=== PATIENT | male | born 1995 | race Caucasian/White ===

== ENCOUNTER 2016-05-07 12:41 | Emergency (ER) | payer OTHER ==
[2016-05-07] MEDS ORDERED: DEXAMETHASONE 10 MG/ML VIAL PO STA (13:54)
[2016-05-07] MEDS ORDERED: DEXAMETHASONE 10 MG/ML VIAL ONE (14:07)
[2016-05-07] MEDS ORDERED: CHERRY SYRUP 10 ML UDC PO ONE (14:07)
== END 2016-05-07 14:21 | disposition home or self-care (01) ==
DX: M54.5 Low back pain (principal); G89.29 Other chronic pain
CPT/HCPCS: 99283; A9270

== ENCOUNTER 2017-02-15 02:22 | Emergency (ER) | payer OTHER ==
--- NOTE | 2017-02-15 03:23 | ED Physician Documentation ---
PD HPI BACK PAIN - Stated complaint Stated Complaint: LOW BACK PAIN - Chief complaint Chief Complaint: Back Pain - History obtained from History obtained from: Patient - History of Present Illness Timing - onset: How many days ago (5) Timing - duration: Days (5) Timing - details: Abrupt onset, Constant, Waxing and waning Pain level now: 8 Location: Lower, Right, Left Quality: Pain, Spasm, Similar to prior episodes Associated symptoms: No: Weakness, Numbness (episodes of paresthesias of both feet, but not numbness (complete loss of sensation)) Improves with: Rest Worsened by: Movement Recently seen: Emergency Dept ( ED 2 weeks ago for same symptoms) - Additional information Additional information: c/o exacerbation of chronic LBP, 5 days ago without specific inciting event, gradually worsening and tonight became intolerable. Review of Systems : denies: Unable to Void, Incontinent Musculoskeletal: reports: Back pain Neurologic: denies: Focal weakness, Numbness PD PAST MEDICAL HISTORY - Past Medical History Past Medical History: Yes Cardiovascular: None Respiratory: None Neuro: None Endocrine/Autoimmune: None GI: None Musculoskeletal: Chronic back pain - Past Surgical History Past Surgical History: No - Present Medications Home Medications: Ambulatory Orders Medication Instructions Recorded Confirmed Cyclobenzaprine [Flexeril] 10 mg PO TID PRN #20 tablet 02/15/17 Hydrocodone/Acetaminophen 1 - 2 each PO Q6HR PRN #14 tablet 02/15/17 [Hydrocodon-Acetaminophen 5-325] predniSONE [Prednisone] 40 mg PO DAILY 3 Days #6 tablet 02/15/17 - Allergies Allergies/Adverse Reactions: Allergies Allergy/AdvReac Type Severity Reaction Status Date / Time No Known Drug Allergies Allergy Verified 02/15/17 02:29 - Social History Does the pt smoke?: No Smoking Status: Never smoker Does the pt drink ETOH?: Yes Does the pt have substance abuse?: No - Immunizations Immunizations are current?: Yes - POLST Patient has POLST: No PD ED PE NORMAL - Vitals Vital signs reviewed: Yes - General General: Alert and oriented X 3, Well developed/nourished, Other (appears to be uncomfortable due to pain) - Back Back: No CVA TTP, No spinal TTP - Derm Derm: Normal color, Warm and dry, No rash - Neuro Neuro: Alert and oriented X 3, No motor deficit (5/5 dorsi/plantarflexion bilaterally), No sensory deficit (LTS intact BLE), Other (2+/4 bilateral patellar DTR) Results - Vitals Vitals: Vital Signs - 24 hr 02/15/17 02/15/17 02:25 04:07 Temperature 36.5 C 36.8 C Heart Rate 83 88 Respiratory 16 18 Rate Blood Pressure 152/101 H 138/87 H O2 Saturation 99 97 Oxygen O2 Source Room air PD MEDICAL DECISION MAKING - ED course Complexity details: reviewed old records, considered differential, d/w patient Departure - Departure Disposition: 01 Home, Self Care Clinical Impression: Acute exacerbation of chronic low back pain Condition: Good Instructions: ED Back Care Tips, ED Sciatica Follow-Up: RAKESH Wallace [Provider Group] JAKE NAIR [Primary Care Provider] - Prescriptions: Hydrocodone/Acetaminophen [Hydrocodon-Acetaminophen 5-325] 1 - 2 each PO Q6HR PRN #14 tablet PRN Reason: Pain Cyclobenzaprine [Flexeril] 10 mg PO TID PRN #20 tablet PRN Reason: Spasms predniSONE [Prednisone] 40 mg PO DAILY 3 Days #6 tablet Discharge Date/Time: 02/15/17 04:07
[2017-02-15] MEDS ORDERED: predniSONE 20 MG TABLET PO STA (03:37)
[2017-02-15] MEDS ORDERED: predniSONE 20 MG TABLET ONE (03:48)
[2017-02-15] MEDS ORDERED: HYDROcod/ACET 5/325 Prepack 6 PO STA (03:52)
[2017-02-15] MEDS ORDERED: CYCLOBENZAPRINE 10 MG Prepack 2 PO STA (03:52)
[2017-02-15 04:10] VITALS: BP 138/87
== END 2017-02-15 04:07 | disposition home or self-care (01) ==
LOC: ED 02:22
DX: M54.5 Low back pain (principal); G89.29 Other chronic pain
CPT/HCPCS: 99283; J7512

== ENCOUNTER 2017-03-13 15:05 | Emergency (ER) | payer OTHER ==
[2017-03-13] MEDS ORDERED: DEXAMETHASONE 10 MG/ML VIAL IVP STA (16:27)
[2017-03-13] MEDS ORDERED: SODIUM CHLORIDE 0.9% 1,000 ML IV ONE (16:27)
[2017-03-13] MEDS ORDERED: KETOROLAC 60 MG/2 ML VIAL IVP STA (16:27)
--- NOTE | 2017-03-13 16:33 | ED Physician Documentation ---
PD HPI BACK PAIN - Stated complaint Stated Complaint: BACK PX - Chief complaint Chief Complaint: Back Pain - History obtained from History obtained from: Patient - History of Present Illness Timing - onset: Today Timing - duration: Days Timing - details: Abrupt onset, Still present Location: Mid Quality: Pain, Spasm, Sharp. No: Similar to prior episodes Associated symptoms: No: Fever, Weakness, Numbness, Incontinent of urine, Unable to urinate, Hematuria, Incontinent of stool Improves with: Rest, Position Worsened by: Movement Contributing factors: Other (no specific injury) Similar symptoms before: Diagnosis (chronic low back pain) Recently seen: Emergency Dept - Additional information Additional information: 22-year-old male with a history of chronic low back pain and spinal stenosis has developed a pain in his mid back beginning yesterday evening. He was in bed when this started and at first it was just a spasm in the right mid back under the scapula and was not particularly painful. As the night went on the pain started and the spasm has not let up. This is different than his usual low back pain and that pain is not any more painful than usual. The pain in the mid back is severe and he is grunting to give the history. Review of Systems Constitutional: denies: Fever, Chills, Myalgias Eyes: denies: Decreased vision Ears: denies: Ear pain Nose: denies: Congestion Throat: denies: Sore throat Cardiac: denies: Chest pain / pressure, Palpitations Respiratory: denies: Dyspnea, Cough GI: denies: Abdominal Pain, Nausea, Vomiting : denies: Dysuria, Frequency Skin: denies: Rash Musculoskeletal: reports: Back pain. denies: Neck pain, Extremity pain Neurologic: denies: Generalized weakness, Focal weakness, Numbness PD PAST MEDICAL HISTORY - Past Medical History Past Medical History: Yes Cardiovascular: None Respiratory: None Neuro: None Endocrine/Autoimmune: None GI: None Musculoskeletal: Chronic back pain Other Past Medical History: steroid shot to spinal for pain - Past Surgical History Past Surgical History: No - Present Medications Home Medications: Ambulatory Orders Medication Instructions Recorded Confirmed Cyclobenzaprine [Flexeril] 10 mg PO TID PRN #20 tablet 03/13/17 HYDROcod/ACETAM 5/325 [[place] 5/325] 1 - 2 ea PO Q6H PRN #15 tablet 03/13/17 - Allergies Allergies/Adverse Reactions: Allergies Allergy/AdvReac Type Severity Reaction Status Date / Time No Known Drug Allergies Allergy Verified 03/13/17 15:13 - Social History Does the pt smoke?: No Smoking Status: Never smoker Does the pt drink ETOH?: Yes Does the pt have substance abuse?: No - Immunizations Immunizations are current?: Yes - POLST Patient has POLST: No PD ED PE NORMAL - Vitals Vital signs reviewed: Yes (hypertensive) - General General: Alert and oriented X 3, Well developed/nourished, Other (The patient is gasping in pain and appears to have acute pain with small movements. He is grunting) - HEENT HEENT: Atraumatic, PERRL, EOMI - Neck Neck: Supple, no meningeal sign, No bony TTP - Cardiac Cardiac: RRR, No murmur - Respiratory Respiratory: No respiratory distress, Clear bilaterally, Other (There is a specific area of tenderness and spasm to the right posterior chest wall inferior to the scapula and lateral to the spine. There is paraspinous muscle spasm and this is dense spasm. ) - Abdomen Abdomen: Soft, Non tender - Back Back: No CVA TTP - Derm Derm: Normal color, No rash - Extremities Extremities: No deformity, No edema - Neuro Neuro: No motor deficit, No sensory deficit Eye Opening: Spontaneous Motor: Obeys Commands Verbal: Oriented GCS Score: 15 - Psych Psych: Normal mood, Normal affect Results - Vitals Vitals: Vital Signs - 24 hr 03/13/17 03/13/17 15:09 16:45 Temperature 36.2 C L 36.7 C Heart Rate 73 Respiratory 18 20 Rate Blood Pressure 138/93 H 127/75 O2 Saturation 100 98 Oxygen O2 Source Room air - Labs Labs: Laboratory Tests 03/13/17 03/13/17 03/13/17 16:44 16:44 16:44 WBC 8.6 RBC 5.69 Hgb 16.5 Hct 48.1 MCV 84.4 MCH 29.0 MCHC 34.4 RDW 13.5 Plt Count 220 MPV 8.6 Neut # 5.8 Lymph # 1.9 Labette # 0.7 Eos # 0.1 Baso # 0.1 Absolute Nucleated RBC 0.01 Nucleated RBC % 0.1 Sodium 137 Potassium 3.9 Chloride 103 Carbon Dioxide 25 Anion Gap 9.0 BUN 11 Creatinine 0.8 Estimated GFR (MDRD) 119 Glucose 97 Calcium 9.4 Total Bilirubin 0.9 AST 22 ALT 32 Alkaline Phosphatase 62 Troponin I < 0.04 Total Protein 8.0 Albumin 4.8 Globulin 3.2 Albumin/Globulin Ratio 1.5 Lipase 16 L Procedures - IVC sono (time) 1625 Bedside IVC sono: IVC measures (cm) (1.2), IVC collapsed c insp (cm) (complete) , Dehydration PD MEDICAL DECISION MAKING - ED course Complexity details: reviewed results, re-evaluated patient, considered differential, d/w patient ED course: 22 y/o male with acute back spasm is dehydrated on interrogation of the IVC. He is administered saline, decadron and toradal IV. He has improvement but not resolution. Departure - Departure Disposition: 01 Home, Self Care Clinical Impression: Spasm of thoracic back muscle Condition: Stable Instructions: ED Spasm Back No Trauma Follow-Up: JAKE NAIR [Primary Care Provider] - Prescriptions: Cyclobenzaprine [Flexeril] 10 mg PO TID PRN #20 tablet PRN Reason: Spasms HYDROcod/ACETAM 5/325 [[place] 5/325] 1 - 2 ea PO Q6H PRN #15 tablet PRN Reason: Pain Forms: Activity restrictions
[2017-03-13 16:48] LABS: BASOPHILS # (AUTO) 0.1 10^3/uL (0.0-0.1); BASOPHILS % (AUTO) 0.9 %; EOSINOPHILS # (AUTO) 0.1 10^3/uL (0.0-0.7); EOSINOPHILS % (AUTO) 0.7 %; HCT - HEMATOCRIT 48.1 % (42.0-52.0); HGB - HEMOGLOBIN 16.5 g/dL (14.0-18.0); LYMPHOCYTES # (AUTO) 1.9 10^3/uL (1.5-3.5); LYMPHOCYTES % (AUTO) 22.6 %; MEAN CORPUSCULAR HGB CONC 34.4 g/dL (32.0-36.0); MEAN CORPUSCULAR VOLUME 84.4 fL (80.0-94.0); MEAN PLATELET VOLUME 8.6 fL (7.4-11.4); MONOCYTES # (AUTO) 0.7 10^3/uL (0.0-1.0); MONOCYTES % (AUTO) 8.6 %; NEUTROPHILS # (AUTO) 5.8 10^3/uL (1.5-6.6); NEUTROPHILS % (AUTO) 67.2 %; NUCLEATED RED BLOOD CELLS AUTO 0.1 /100WBC; RED BLOOD COUNT 5.69 10^6/uL (4.70-6.10); RED CELL DISTRIBUTION WIDTH 13.5 % (12.0-15.0); UNCORRECTED WHITE BLOOD COUNT 8.6 x10^3/uL; WHITE BLOOD COUNT 8.6 x10^3/uL (4.8-10.8)
[2017-03-13] MEDS ORDERED: KETOROLAC 30 MG/ML VIAL ONE (16:58)
[2017-03-13] MEDS ORDERED: DEXAMETHASONE 10 MG/ML VIAL ONE (16:58)
[2017-03-13 17:01] LABS: ALBUMIN/GLOBULIN RATIO 1.5 (1.0-2.2); BILIRUBIN,TOTAL 0.9 mg/dL (0.2-1.0); CALCIUM 9.4 mg/dL (8.5-10.3); CREATININE 0.8 mg/dL (0.6-1.2); POTASSIUM 3.9 mmol/L (3.5-5.0)
[2017-03-13] MEDS ORDERED: HYDROcod/ACET 5/325 Prepack 6 PO ONE ×2 (17:42→17:54)
[2017-03-13 17:46] VITALS: BP 147/92
== END 2017-03-13 17:56 | disposition home or self-care (01) ==
LOC: ED 15:05
DX: M62.830 Muscle spasm of back (principal); E86.0 Dehydration; G89.29 Other chronic pain
CPT/HCPCS: 36415; 80053; 83690; 84484; 85025; 96361; 96374; 96375; 99283; 99284

== ENCOUNTER 2017-04-16 20:49 | Emergency (ER) | payer OTHER ==
[2017-04-16] MEDS ORDERED: HYDROmorphone 1 MG/ML SYRINGE IM STA (22:06)
[2017-04-16] MEDS ORDERED: DEXAMETHASONE 10 MG/ML VIAL IM STA (22:06)
[2017-04-16] MEDS ORDERED: CYCLOBENZAPRINE 10 MG Prepack 2 PO PRN (22:06)
[2017-04-16] MEDS ORDERED: HYDROcod/ACET 5/325 Prepack 6 PO STA (22:06)
--- NOTE | 2017-04-16 22:09 | ED Physician Documentation ---
PD HPI BACK PAIN - Stated complaint Stated Complaint: LOW BACK PAIN - Chief complaint Chief Complaint: Back Pain - History obtained from History obtained from: Patient - History of Present Illness Timing - onset: Other (22-year-old gentleman with history of recurrent low back pain developed a low back spasm similar to prior. He has been in physical therapy for this and has had epidural steroid injections. The pain radiates to the buttocks but no further, no associated weakness, numbness, tingling, fever, saddle anesthesia or incontinence.) Review of Systems Constitutional: reports: Reviewed and negative Cardiac: reports: Reviewed and negative Respiratory: reports: Reviewed and negative PD PAST MEDICAL HISTORY - Past Medical History Past Medical History: Yes Cardiovascular: None Respiratory: None Neuro: None Endocrine/Autoimmune: None GI: None Musculoskeletal: Chronic back pain - Past Surgical History Past Surgical History: No - Present Medications Home Medications: Ambulatory Orders Medication Instructions Recorded Confirmed Cyclobenzaprine [Flexeril] 10 mg PO TID PRN #20 tablet 03/13/17 04/16/17 HYDROcod/ACETAM 5/325 [[place] 5/325] 1 - 2 ea PO Q6H PRN #15 tablet 03/13/17 Cyclobenzaprine [Flexeril] 10 mg PO TID PRN #20 tablet 04/16/17 HYDROcod/ACETAM 5/325 [[place] 5/325] 1 - 2 ea PO Q6H PRN #15 tablet 04/16/17 - Allergies Allergies/Adverse Reactions: Allergies Allergy/AdvReac Type Severity Reaction Status Date / Time No Known Drug Allergies Allergy Verified 04/16/17 21:50 - Social History Does the pt smoke?: No Smoking Status: Never smoker Does the pt drink ETOH?: Yes Does the pt have substance abuse?: No - Immunizations Immunizations are current?: Yes - POLST Patient has POLST: No PD ED PE NORMAL - Vitals Vital signs reviewed: Yes - General General: Alert and oriented X 3, Other (Comfortable at rest, winces with motion) - Back Back: No spinal TTP, Other (The patient has equal and normal Achilles and patellar reflexes bilaterally. Normal sensation in all areas of the legs. Patient denies saddle anesthesia. Normal strength in flexion-extension at the ankles, knees, and flexion of the hips.) - Derm Derm: Normal color, Warm and dry - Neuro Neuro: Alert and oriented X 3, Normal speech Results - Vitals Vitals: Vital Signs - 24 hr 04/16/17 21:50 Temperature 36.7 C Heart Rate 91 Respiratory 18 Rate Blood Pressure 142/91 H O2 Saturation 97 Oxygen O2 Source Room air PD MEDICAL DECISION MAKING - ED course ED course: This patient has seemingly uncomplicated musculoskeletal back pain. The patient has no "red flags." Specifically denies IV drug use, fevers, incontinence, saddle anesthesia. Spinal epidural abscess was considered, given that the patient has no fever, is not diabetic, has no spinal tenderness, does not use IV drugs, and has no bilateral neurologic symptoms, the diagnosis of spinal epidural abscess is considered exceedingly unlikely. Departure - Departure Disposition: 01 Home, Self Care Clinical Impression: Acute exacerbation of chronic low back pain Condition: Good Record reviewed to determine appropriate education?: Yes Instructions: ED Low Back Pain Injury Prescriptions: Cyclobenzaprine [Flexeril] 10 mg PO TID PRN #20 tablet PRN Reason: Pain HYDROcod/ACETAM 5/325 [[place] 5/325] 1 - 2 ea PO Q6H PRN #15 tablet PRN Reason: Pain Comments: Call your doctor to arrange a follow-up appointment, make the next available appointment. In the interim, return anytime if worse or if new symptoms develop. Do not drink or drive while taking narcotic pain medication. Note that many narcotic pain relievers also contain Tylenol/acetaminophen. Please ensure that your total dose of acetaminophen from all sources does not exceed 3 g (3000 mg) per day. You may get constipated while on this medication. Take a stool softener such as Colace twice a day while you are on it. Also add an [id number] laxative such as senna or MiraLAX on any day that you do not have a bowel movement. If you received a narcotic pain medication or sedative while in the emergency department, do not drive for the next 24 hours. Your blood pressure was elevated today on check into the emergency department. This does not mean that you have hypertension, it is a common phenomenon to come to the emergency department and have elevated blood pressure. I recommend that you see your primary care physician within the week to have it rechecked when you are feeling better.
[2017-04-16 23:18] VITALS: BP 136/98
== END 2017-04-16 23:16 | disposition home or self-care (01) ==
LOC: ED 20:49
DX: M54.5 Low back pain (principal); G89.29 Other chronic pain; R03.0 Elevated blood-pressure reading, without diagnosis of hypertension
CPT/HCPCS: 96372; 99283; J1170

== ENCOUNTER 2017-06-19 15:24 | Emergency (ER) | payer OTHER ==
[2017-06-19] MEDS ORDERED: DEXAMETHASONE 10 MG/ML VIAL PO STA (16:21)
--- NOTE | 2017-06-19 16:23 | ED Physician Documentation ---
PD HPI BACK PAIN - Stated complaint Stated Complaint: LOW BACK PX - Chief complaint Chief Complaint: Back Pain - History obtained from History obtained from: Patient - History of Present Illness Timing - onset: How many days ago (2) Timing - duration: Days (2) Timing - details: Gradual onset, Still present Location: Lower Quality: Pain, Spasm, Sharp, Similar to prior episodes Associated symptoms: No: Fever, Weakness, Numbness, Incontinent of urine, Unable to urinate, Hematuria, Incontinent of stool Improves with: Rest, Position Worsened by: Movement Contributing factors: Other (chronic back pain with flares) Similar symptoms before: Diagnosis (lumbar disc diseaes) Recently seen: Not recently seen - Additional information Additional information: 22-year-old male with lumbar back pain has developed another exacerbation of his pain. He has had this happen to him a number of times and he is now being medically discharged from the [facility] as being unfit to serve. He has had physical therapy and epidural steroid injections. Review of Systems Constitutional: denies: Fever Eyes: denies: Decreased vision Ears: denies: Foreign body Respiratory: denies: Cough GI: denies: Vomiting : denies: Dysuria, Frequency, Incontinent Skin: denies: Rash Musculoskeletal: reports: Back pain. denies: Neck pain, Extremity pain Neurologic: denies: Generalized weakness, Focal weakness PD PAST MEDICAL HISTORY - Past Medical History Cardiovascular: None Respiratory: None Neuro: None Endocrine/Autoimmune: None GI: None Musculoskeletal: Chronic back pain - Past Surgical History Past Surgical History: No - Present Medications Home Medications: Ambulatory Orders Medication Instructions Recorded Confirmed Cyclobenzaprine [Flexeril] 10 mg PO TID PRN #20 tablet 06/19/17 HYDROcod/ACETAM 5/325 [[place] 5/325] 1 - 2 ea PO Q6H PRN #15 tablet 06/19/17 Ibuprofen 06/19/17 Meloxicam 06/19/17 - Allergies Allergies/Adverse Reactions: Allergies Allergy/AdvReac Type Severity Reaction Status Date / Time No Known Drug Allergies Allergy Verified 04/16/17 21:50 - Social History Does the pt smoke?: No Smoking Status: Never smoker Does the pt drink ETOH?: Yes Does the pt have substance abuse?: No - Immunizations Immunizations are current?: Yes - POLST Patient has POLST: No PD ED PE NORMAL - Vitals Vital signs reviewed: Yes (Hypertensive) - General General: Alert and oriented X 3, No acute distress, Well developed/nourished - HEENT HEENT: Atraumatic, PERRL, EOMI - Respiratory Respiratory: No respiratory distress - Back Back: No CVA TTP, No spinal TTP, Other (There is apparent spinous muscle tenderness to the lower lumbar spine but does not progress beyond the sacrum. It does not extend into the sciatic notch) - Derm Derm: Normal color, Warm and dry, No rash - Extremities Extremities: No deformity, No edema - Neuro Neuro: No motor deficit, No sensory deficit Eye Opening: Spontaneous Motor: Obeys Commands Verbal: Oriented GCS Score: 15 - Psych Psych: Normal mood, Normal affect Results - Vitals Vitals: Vital Signs - 24 hr 06/19/17 15:29 Temperature 36.7 C Heart Rate 92 Respiratory 18 Rate Blood Pressure 164/102 H O2 Saturation 100 Oxygen O2 Source Room air PD MEDICAL DECISION MAKING - ED course Complexity details: considered differential, d/w patient ED course: 22-year-old male with chronic recurrent back pain is being discharged from the [facility] medically and today has exacerbation of his pain. I have discussed with the patient principles of treatment to include ice stretch hydration and range of motion against elastic resistance. Departure - Departure Disposition: 01 Home, Self Care Clinical Impression: Acute exacerbation of chronic low back pain Condition: Stable Instructions: ED Sprain Strain Lumbar Follow-Up: RAKESH Wallace [Provider Group] Prescriptions: Cyclobenzaprine [Flexeril] 10 mg PO TID PRN #20 tablet PRN Reason: Spasms HYDROcod/ACETAM 5/325 [[place] 5/325] 1 - 2 ea PO Q6H PRN #15 tablet PRN Reason: Pain Comments: Today in the Emergency Department your blood pressure was elevated. This can happen from the stress of the visit itself, from a current illness or circumstance or from uncontrolled hypertension. If you take blood pressure medications take your usual mediations, have your blood pressure re-checked in an appropriate setting and follow up any elevation with your primary care doctor.
[2017-06-19 16:43] VITALS: BP 127/79
[2017-06-19] MEDS ORDERED: CHERRY SYRUP 10 ML UDC PO ONE (16:55)
== END 2017-06-19 16:49 | disposition home or self-care (01) ==
LOC: ED 15:24
DX: M54.5 Low back pain (principal); G89.29 Other chronic pain
CPT/HCPCS: 99283; A9270